=== PATIENT | male | born 1935 | race Caucasian/White ===

== ENCOUNTER → 2025-02-16 | Outpatient (CLI) | payer MEDICARE, OTHER, SELFPAY ==
[2025-02-16 14:05] LABS: PSA,Total- Diagnostic < 0.02 ng/mL (0.00-4.00)
== END | disposition home or self-care (01) ==
LOC: LAB 12:11
PROVIDERS: Referring Provider Nurse Practitioner; Visit Provider Nurse Practitioner
DX: C61 Malignant neoplasm of prostate (principal)
CPT/HCPCS: 36415; 84153